=== PATIENT | female | born 1980 | race Caucasian/White ===

== ENCOUNTER → 2016-12-20 | Outpatient (CLI) | payer OTHER | END | disposition home or self-care (01) | LOC: CFH 14:53 | PROVIDERS: ATTEND Family Medicine | DX: M25.572 Pain in left ankle and joints of left foot (principal) ==

== ENCOUNTER 2018-09-10 11:34 | Emergency (ER) | payer OTHER ==
[~2018-09-10] VITALS: Ht 154.9 cm; Wt 57.7 kg
[2018-09-10 11:58] VITALS: BP 167/91
[2018-09-10 12:30] LABS: BASOPHILS # (AUTO) 0.04 x10^3/uL (0-0.1); BASOPHILS % (AUTO) 1 % (0-1); EOSINOPHILS # (AUTO) 0.05 x10^3/uL (0-0.4); EOSINOPHILS % (AUTO) 1 % (1-7); LYMPHOCYTES # (AUTO) 1.13 x10^3/uL (1-3.4); LYMPHOCYTES % (AUTO) 21 % (22-44); MD NO; MEAN CORPUSCULAR HEMOGLOBIN 33.4 pg (27.0-34.8); MEAN CORPUSCULAR HGB CONC 33.8 g/dL (32.4-35.8); MEAN CORPUSCULAR VOLUME 98.8 fL (80-100); MEAN PLATELET VOLUME 8.3 fL (7.4-10.4); MONOCYTES # (AUTO) 0.53 x10^3/uL (0.2-0.8); MONOCYTES % (AUTO) 10 % (2-9); NEUTROPHILS # (AUTO) 3.63 x10^3/uL (1.8-6.8); NEUTROPHILS % (AUTO) 68 % (42-75); PLATELET COUNT 262 x10^3/uL (130-400); RED BLOOD COUNT 4.22 x10^6/uL (3.82-5.3); RED CELL DISTRIBUTION WIDTH 15.3 % (9.6-15.2)
[2018-09-10 12:41] LABS: ALBUMIN 4.1 g/dL (3.4-5.0); ANION GAP 8 mmol/L (5-15); CALCIUM 8.8 mg/dL (8.5-10.1); CHLORIDE 107 mmol/L (98-107); CREATININE 0.58 mg/dL (0.55-1.02)
== END 2018-09-10 13:56 | disposition home or self-care (01) ==
LOC: ED 13:50
DX: L03.115 Cellulitis of right lower limb (principal)
CPT/HCPCS: 36415; 80048; 82040; 85025; 99284

== ENCOUNTER → 2019-07-15 | Outpatient (CLI) | payer OTHER ==
[~2019-07-15] MED LIST: GADOTERATE 2.5 MMOL/5 ML VIAL ONE; LIDOCAINE-MPF 1%, 5ML ONE; OMNIPAQUE 300 MG/ML, 10ML VIAL ONE; ROPivacaine/PF 0.2%, 10 ML ONE
== END | disposition home or self-care (01) ==
LOC: RAD 13:57
PROVIDERS: ATTEND Specialist
CPT/HCPCS: 73523 ×2; 73525; 73722; A9575; J2795 ×2; Q9967 ×2

== ENCOUNTER 2020-04-06 20:39 | Emergency (ER) | payer OTHER ==
[2020-04-06] MEDS ORDERED: SODIUM CHLORIDE FLUSH 10ML SYR IVF ONE (21:00)
[2020-04-06] MEDS ORDERED: THIAMINE 100 MG in SODIUM CHLORIDE 0.9% 50 ML IVPB ONE (21:00)
[2020-04-06] MEDS ORDERED: SODIUM CHLORIDE 0.9% 1,000ML IVBOLUS ONE ×2 (21:00→23:30)
[2020-04-06 21:21] LABS: MEAN CORPUSCULAR HEMOGLOBIN 29.5 pg (27.0-34.8); MEAN CORPUSCULAR HGB CONC 32.1 g/dL (32.4-35.8); MEAN CORPUSCULAR VOLUME 92.2 fL (80-100); MEAN PLATELET VOLUME 8.4 fL (7.4-10.4); PLATELET COUNT 143 x10^3/uL (130-400); RED BLOOD COUNT 5.87 x10^6/uL (3.82-5.3)
[2020-04-06 21:24] LABS: ALANINE AMINOTRANSFERASE 215 U/L (12-78); ALBUMIN 3.3 g/dL (3.4-5.0); ANION GAP 14 mmol/L (5-15); CALCIUM 7.4 mg/dL (8.5-10.1); CHLORIDE 103 mmol/L (98-107); CREATININE 0.78 mg/dL (0.55-1.02)
[2020-04-06 21:29] LABS: ALKALINE PHOSPHATASE 75 U/L (45-117); BILIRUBIN,TOTAL 0.5 mg/dL (0.2-1.0); TOTAL PROTEIN 6.8 g/dL (6.4-8.2)
--- NOTE | 2020-04-06 21:41 | NUR ---
PT A&OX4 NOW.
[2020-04-06 21:43] LABS: MD YES
[2020-04-06 21:45] LABS: ANISOCYTOSIS 1+; BAND#(MANUAL) 0.08 x10^3/uL; BANDS%(MANUAL) 1 % (0-7); LYMPH#(MANUAL) 0.68 x10^3/uL (1-3.4); LYMPHS% (MANUAL) 9 % (22-44); MONOS#(MANUAL) 0.76 x10^3/uL (0.3-2.7); MONOS% (MANUAL) 10 % (2-9); SEG#(MANUAL) 6.08 x10^3/uL (1.8-6.8); SEGS% (MANUAL) 80 % (42-75)
[2020-04-06 21:46] LABS: <PLATELET ESTIMATE> ADEQUATE; <PLT MORPHOLOGY> NORMAL PLT MORPH
--- NOTE | 2020-04-06 22:37 | NUR ---
LATE ENTRY SUMMARY NOTE: PT IMMEDIATELY PLACED ON CARDIAC, BP AND O2 MONITORS. IN BED WITH BEDRAILS UP. SHE INITIALLY WOULD ONLY ANSWER APPROX HALF THE QUESTIONS ASKED OF HER. NO PT COMMUNICATING IN FULL SENTENCES AND ANSWERING ALL QUESTIONS. PT STATES "I WAS ON VACATION, I DRANK THE 5 BOTTLES OVER THE PAST 2 DAYS." PT ABLE TO SIT UP AND DRINK WATER NOW. SHE'S HAD A VISITOR AT THE BEDSIDE UNTIL APPROX 2215. SHE HAS HER CALL LIGHT IN REACH. PT EDUCATED THAT SHE IS RECEIVING FLUIDS WHEN SHE STATES "I FEEL LIKE I JUST NEED A SALINE INJECTION." WILL ASSESS PT'S ABILITY TO AMBULATE AND PUT HER CHART UP FOR RECHECK.
--- NOTE | 2020-04-06 23:54 | NUR ---
LATE ENTRY FOR 2319: PT DRESSED SELF IN SOCKS, HR UP TO 143, ERP MADE AWARE, SECOND LITER HUNG.
--- NOTE | 2020-04-07 00:31 | NUR ---
PT UP TO BESDIDE COMMODE WITH ASSISTANCE. HR UP TO 140. ERP MADE AWARE.
[2020-04-07 00:51] VITALS: BP 129/94
--- NOTE | 2020-04-07 00:56 | NUR ---
PT AMBULATORY TO SINK FOR WATER, STEADY GAIT. PT DRESSING SELF FOR D/C.
== END 2020-04-07 01:11 | disposition home or self-care (01) ==
LOC: ED 04-07 00:11
DX: F10.229 Alcohol dependence with intoxication, unspecified (principal); R00.0 Tachycardia, unspecified; I49.3 Ventricular premature depolarization; Y90.0 Blood alcohol level of less than 20 mg/100 ml
CPT/HCPCS: 36415; 80053; 80307; 85025; 93005; 96361; 96365; 99284; J3411; J7030

== ENCOUNTER 2020-04-10 15:41 | Inpatient (IN) | payer OTHER ==
[~2020-04-10] VITALS: Ht 154.9 cm; Wt 62.8 kg
[2020-04-10] MEDS ORDERED: LORazepam 2 MG/ML, 1ML ONE ×2 (16:24→18:23)
[2020-04-10] MEDS ORDERED: SODIUM CHLORIDE 0.9% 1,000ML IVBOLUS ONE (16:30)
[2020-04-10] MEDS ORDERED: SODIUM CHLORIDE FLUSH 10ML SYR IVF ONE (16:30)
[2020-04-10] MEDS ORDERED: LORazepam 2 MG/ML, 1ML IVPush ONE ×2 (16:30→18:30)
[2020-04-10 17:11] LABS: ALANINE AMINOTRANSFERASE 151 U/L (12-78); ANION GAP 19 mmol/L (5-15); CALCIUM 7.9 mg/dL (8.5-10.1); CHLORIDE 94 mmol/L (98-107); CREATININE 0.35 mg/dL (0.55-1.02)
[2020-04-10 17:15] LABS: ALKALINE PHOSPHATASE 63 U/L (45-117); TOTAL PROTEIN 6.3 g/dL (6.4-8.2)
[2020-04-10 17:49] LABS: MEAN CORPUSCULAR HEMOGLOBIN 29.9 pg (27.0-34.8); MEAN CORPUSCULAR HGB CONC 32.6 g/dL (32.4-35.8); MEAN CORPUSCULAR VOLUME 91.8 fL (80-100); MEAN PLATELET VOLUME 7.2 fL (7.4-10.4); PLATELET COUNT 107 x10^3/uL (130-400); RED CELL DISTRIBUTION WIDTH 18.9 % (9.6-15.2)
[2020-04-10] MEDS ORDERED: POTASSIUM CHLORIDE 20 MEQ, MAGNESIUM SULFATE 1 GM, FOLIC ACID 1 MG, THIAMINE 200 MG, MV... IV ONE (18:00)
[2020-04-10 18:09] LABS: BASOPHILS % (AUTO) 0 % (0-1); EOSINOPHILS % (AUTO) 0 % (1-7); LYMPHOCYTES # (AUTO) 0.34 x10^3/uL (1-3.4); LYMPHOCYTES % (AUTO) 7 % (22-44); MD SCAN; MONOCYTES # (AUTO) 0.64 x10^3/uL (0.2-0.8); MONOCYTES % (AUTO) 12 % (2-9); NEUTROPHILS # (AUTO) 4.17 x10^3/uL (1.8-6.8); NEUTROPHILS % (AUTO) 81 % (42-75)
[2020-04-10] MEDS ORDERED: CHLORDIAZEPOXIDE 25 MG CAPSULE ONE (18:23)
[2020-04-10] MEDS ORDERED: CHLORDIAZEPOXIDE 25 MG CAPSULE PO ONE (18:30)
[2020-04-10] MEDS ORDERED: POTASSIUM CHLORIDE 20 MEQ, MAGNESIUM SULFATE 2 GM, THIAMINE 200 MG, MVI ADULT 10 ML, FO... IV SCH (18:34)
[2020-04-10] MEDS ORDERED: LABETALOL 5MG/ML, 20ML IV PRN (19:00)
[2020-04-10] MEDS ORDERED: LORazepam 2 MG/ML, 1ML IV PRN ×2 (19:00)
[2020-04-10] MEDS ORDERED: NICOTINE 14MG/24 HR PATCH.TD24 TD ONE (19:00)
[2020-04-10] MEDS ORDERED: ONDANSETRON 2MG/ML, 2ML IVPush PRN (19:00)
[2020-04-10] MEDS ORDERED: DOCUSATE 100 MG CAPSULE PO PRN (19:00)
[2020-04-10 21:18] VITALS: BP 137/79
[2020-04-10] MEDS ORDERED: [UNRECOGNIZED DRUG - CODE] PO (21:26)
[2020-04-10] MEDS ORDERED: CELE50CA PO (21:26)
[2020-04-10] MEDS: LORazepam 2 MG/ML, 1ML IV PRN ×2 (22:30→23:53)
[2020-04-11 00:44] VITALS: BP 142/87
[2020-04-11] MEDS ORDERED: EPIN0.3A3 IJ (02:19)
[2020-04-11] MEDS ORDERED: IBUP-1223 PO (02:19)
[2020-04-11 05:11] LABS: ALBUMIN 2.9 g/dL (3.4-5.0); ANION GAP 10 mmol/L (5-15); CALCIUM 8.5 mg/dL (8.5-10.1); CHLORIDE 97 mmol/L (98-107)
[2020-04-11 05:15] LABS: ALANINE AMINOTRANSFERASE 128 U/L (12-78); ALKALINE PHOSPHATASE 71 U/L (45-117); BILIRUBIN,TOTAL 1.3 mg/dL (0.2-1.0); CREATININE 0.57 mg/dL (0.55-1.02); TOTAL PROTEIN 5.8 g/dL (6.4-8.2)
[2020-04-11 05:16] LABS: MEAN CORPUSCULAR HEMOGLOBIN 30.3 pg (27.0-34.8); MEAN CORPUSCULAR VOLUME 91.8 fL (80-100); MEAN PLATELET VOLUME 7.9 fL (7.4-10.4); PLATELET COUNT 105 x10^3/uL (130-400); RED BLOOD COUNT 3.57 x10^6/uL (3.82-5.3); RED CELL DISTRIBUTION WIDTH 18.5 % (9.6-15.2)
[2020-04-11 06:03] LABS: BASOPHILS % (AUTO) 0 % (0-1); EOSINOPHILS # (AUTO) 0.02 x10^3/uL (0-0.4); EOSINOPHILS % (AUTO) 0 % (1-7); LYMPHOCYTES # (AUTO) 1.07 x10^3/uL (1-3.4); LYMPHOCYTES % (AUTO) 23 % (22-44); MD SCAN; MONOCYTES # (AUTO) 0.44 x10^3/uL (0.2-0.8); MONOCYTES % (AUTO) 9 % (2-9); NEUTROPHILS # (AUTO) 3.23 x10^3/uL (1.8-6.8); NEUTROPHILS % (AUTO) 68 % (42-75)
[2020-04-11 06:30] VITALS: BP 169/103
[2020-04-11] MEDS: LORazepam 2 MG/ML, 1ML IV PRN (06:42)
[2020-04-11] MEDS ORDERED: MAGNESIUM SULFATE PMX 2GM/50ML 50 ML IV ONE (08:30)
[2020-04-11] MEDS: CHLORDIAZEPOXIDE 25 MG CAPSULE PO SCH ×3 (08:41→21:59)
[2020-04-11 12:13] VITALS: BP 172/122
[2020-04-11 12:43] VITALS: BP 161/100
[2020-04-11] MEDS ORDERED: LABETALOL 5MG/ML, 20ML IV PRN (13:00)
[2020-04-11 16:06] VITALS: BP 165/104
[2020-04-11] MEDS: POTASSIUM CHLORIDE 20 MEQ, MAGNESIUM SULFATE 2 GM, THIAMINE 200 MG, MVI ADULT 10 ML, FO... IV SCH (18:02)
[2020-04-11 18:34] VITALS: BP 147/93
[2020-04-12 02:19] VITALS: BP 156/95
[2020-04-12 06:15] LABS: CHLORIDE 101 mmol/L (98-107)
[2020-04-12 06:33] LABS: ALANINE AMINOTRANSFERASE 102 U/L (12-78); ALBUMIN 2.8 g/dL (3.4-5.0); ALKALINE PHOSPHATASE 61 U/L (45-117); ANION GAP 7 mmol/L (5-15); BILIRUBIN,TOTAL 1.3 mg/dL (0.2-1.0); CALCIUM 8.2 mg/dL (8.5-10.1); CREATININE 0.41 mg/dL (0.55-1.02); TOTAL PROTEIN 6.1 g/dL (6.4-8.2)
[2020-04-12 06:39] VITALS: BP 158/108
[2020-04-12 06:44] LABS: MD YES; MEAN CORPUSCULAR HGB CONC 32.3 g/dL (32.4-35.8); MEAN CORPUSCULAR VOLUME 92.8 fL (80-100); MEAN PLATELET VOLUME 8.3 fL (7.4-10.4); PLATELET COUNT 111 x10^3/uL (130-400); RED BLOOD COUNT 3.94 x10^6/uL (3.82-5.3); RED CELL DISTRIBUTION WIDTH 18.6 % (9.6-15.2)
[2020-04-12 06:45] LABS: BAND#(MANUAL) 0.13 x10^3/uL; BANDS%(MANUAL) 3 % (0-7); EOS#(MANUAL) 0.04 x10^3/uL (0.0-0.4); EOS% (MANUAL) 1 % (1-7); LYMPH#(MANUAL) 0.67 x10^3/uL (1-3.4); LYMPHS% (MANUAL) 16 % (22-44); MONOS#(MANUAL) 0.38 x10^3/uL (0.3-2.7); MONOS% (MANUAL) 9 % (2-9); SEG#(MANUAL) 2.98 x10^3/uL (1.8-6.8); SEGS% (MANUAL) 71 % (42-75)
[2020-04-12 06:46] LABS: <PLATELET ESTIMATE> DECREASED; <PLT MORPHOLOGY> NORMAL PLT MORPH; ANISOCYTOSIS 1+; HYPOCHROMIA 1+
[2020-04-12] MEDS: POTASSIUM CHLORIDE 20 MEQ TAB.ER.PRT PO SCH ×2 (08:46→17:22)
[2020-04-12 12:08] VITALS: BP 164/105
[2020-04-12] MEDS: LORazepam 2 MG/ML, 1ML IV PRN ×2 (14:40→21:00)
[2020-04-12] MEDS: POTASSIUM CHLORIDE 20 MEQ, MAGNESIUM SULFATE 2 GM, THIAMINE 200 MG, MVI ADULT 10 ML, FO... IV SCH (17:22)
[2020-04-12 18:42] VITALS: BP 142/95
[2020-04-13 00:36] VITALS: BP 126/84
[2020-04-13] MEDS: LORazepam 2 MG/ML, 1ML IV PRN ×4 (02:42→20:17)
[2020-04-13] MEDS: POTASSIUM CHLORIDE 20 MEQ, MAGNESIUM SULFATE 2 GM, THIAMINE 200 MG, MVI ADULT 10 ML, FO... IV SCH (02:42)
[2020-04-13 05:31] LABS: ALANINE AMINOTRANSFERASE 77 U/L (12-78); ALBUMIN 2.7 g/dL (3.4-5.0); ANION GAP 7 mmol/L (5-15); CALCIUM 8.8 mg/dL (8.5-10.1); CHLORIDE 106 mmol/L (98-107); CREATININE 0.41 mg/dL (0.55-1.02)
[2020-04-13 05:33] LABS: ALKALINE PHOSPHATASE 69 U/L (45-117); BILIRUBIN,TOTAL 0.8 mg/dL (0.2-1.0); TOTAL PROTEIN 6.3 g/dL (6.4-8.2)
[2020-04-13 06:03] LABS: MD YES; MEAN CORPUSCULAR HEMOGLOBIN 30.4 pg (27.0-34.8); MEAN CORPUSCULAR HGB CONC 32.3 g/dL (32.4-35.8); MEAN PLATELET VOLUME 9.2 fL (7.4-10.4); PLATELET COUNT 144 x10^3/uL (130-400); RED BLOOD COUNT 3.88 x10^6/uL (3.82-5.3); RED CELL DISTRIBUTION WIDTH 18.7 % (9.6-15.2)
[2020-04-13 06:05] LABS: <PLATELET ESTIMATE> ADEQUATE; <PLT MORPHOLOGY> NORMAL PLT MORPH; ANISOCYTOSIS 1+; BAND#(MANUAL) 0.05 x10^3/uL; BANDS%(MANUAL) 1 % (0-7); EOS#(MANUAL) 0.14 x10^3/uL (0.0-0.4); EOS% (MANUAL) 3 % (1-7); LYMPH#(MANUAL) 0.71 x10^3/uL (1-3.4); LYMPHS% (MANUAL) 15 % (22-44); MONOS#(MANUAL) 0.42 x10^3/uL (0.3-2.7); MONOS% (MANUAL) 9 % (2-9); SEG#(MANUAL) 3.38 x10^3/uL (1.8-6.8); SEGS% (MANUAL) 72 % (42-75)
[2020-04-13 07:31] VITALS: BP 131/87
[2020-04-13 13:53] VITALS: BP 137/90
[2020-04-13 18:45] VITALS: BP 142/89
[2020-04-14 01:49] VITALS: BP 129/68
[2020-04-14] MEDS: POTASSIUM CHLORIDE 20 MEQ, MAGNESIUM SULFATE 2 GM, THIAMINE 200 MG, MVI ADULT 10 ML, FO... IV SCH ×2 (02:06→02:07)
[2020-04-14 07:08] VITALS: BP 144/88
== END 2020-04-14 10:31 | disposition home or self-care (01) | DRG 641 ==
LOC: ED 17:33 → EDIP 18:49 → 4WST 21:06 → DCLOUNGE 04-14 10:24
PROVIDERS: ADMIT Family Medicine; ATTEND Family Medicine
DX: E87.6 Hypokalemia (principal); F10.231 Alcohol dependence with withdrawal delirium; E83.42 Hypomagnesemia; E87.1 Hypo-osmolality and hyponatremia; E87.2 Acidosis; D69.6 Thrombocytopenia, unspecified; F10.229 Alcohol dependence with intoxication, unspecified; G51.0 Bell's palsy; F17.210 Nicotine dependence, cigarettes, uncomplicated; G89.29 Other chronic pain; Z88.8 Allergy status to other drugs, medicaments and biological substances
CPT/HCPCS: 36415; J7042; 80053; 80074; 83735; 84703; 85025; 93005; 96361; 96374; 99285; G0378; J3411; J3475; J3480; J2060; J7030

== ENCOUNTER 2021-03-06 14:23 | Emergency (ER) | payer OTHER ==
[~2021-03-06] VITALS: Ht 157.5 cm; Wt 55.0 kg
[~2021-03-06 14:23] MED LIST changes: +CELE50CA PO; +EPIN0.3A3 IJ; -GADOTERATE 2.5 MMOL/5 ML VIAL ONE; +IBUP-1223 PO; -LIDOCAINE-MPF 1%, 5ML ONE; -OMNIPAQUE 300 MG/ML, 10ML VIAL ONE; -ROPivacaine/PF 0.2%, 10 ML ONE; +[UNRECOGNIZED DRUG - CODE] PO
--- NOTE | 2021-03-06 14:57 | NUR ---
PT PRESENTS TO ED WTH C/O HIGH BLOOD PRESSURE AND HEADACHE STARTING TODAY. NEURP INTACT, PT A&O, RESPS EVEN AND UNLABORED, NADN. PT PRESENTS ANXIOUS. CALL LIGHT IN REACH.
--- NOTE | 2021-03-06 15:08 | NUR ---
lary Sethi at bedside for eval
--- NOTE | 2021-03-06 15:20 | NUR ---
PT MEDICATED PER ORDER, TOLERATED WELL. LAB AT BEDSIDE
[2021-03-06 15:34] LABS: BASOPHILS % (AUTO) 2 % (0-1); EOSINOPHILS % (AUTO) 1 % (1-7); LYMPHOCYTES % (AUTO) 25 % (22-44); MEAN CORPUSCULAR HEMOGLOBIN 30.8 pg (27.0-34.8); MEAN CORPUSCULAR HGB CONC 33.6 g/dL (32.4-35.8); MEAN PLATELET VOLUME 8.3 fL (7.4-10.4); MONOCYTES % (AUTO) 10 % (2-9); NEUTROPHILS % (AUTO) 63 % (42-75); PLATELET COUNT 217 x10^3/uL (130-400); RED BLOOD COUNT 4.45 x10^6/uL (3.82-5.3); RED CELL DISTRIBUTION WIDTH 19.1 % (9.6-15.2)
[2021-03-06 15:43] LABS: ALANINE AMINOTRANSFERASE 61 U/L (12-78); ALBUMIN 4.3 g/dL (3.4-5.0); ANION GAP 10 mmol/L (5-15); CALCIUM 8.5 mg/dL (8.5-10.1); CHLORIDE 102 mmol/L (98-107); CREATININE 0.45 mg/dL (0.55-1.02)
[2021-03-06 15:53] LABS: ALKALINE PHOSPHATASE 61 U/L (45-117); BILIRUBIN,TOTAL 0.5 mg/dL (0.2-1.0); TOTAL PROTEIN 8.5 g/dL (6.4-8.2)
[2021-03-06 16:20] VITALS: BP 156/104
--- NOTE | 2021-03-06 16:21 | NUR ---
pt resting on guruzair, a&o, resps even and unlabored, vss, nadn. states she is feeling better and no longer has a headache.
--- NOTE | 2021-03-06 17:19 | NUR ---
pt educated on dc instructions, verbalized understanding, ambulatory to dc desk with steayd gait.
== END 2021-03-06 17:42 | disposition home or self-care (01) ==
LOC: ED 14:45
DX: I10 Essential (primary) hypertension (principal)
CPT/HCPCS: 36415; 80053; 84443; 85025; 93005; 99284

== ENCOUNTER 2021-03-26 15:54 | Emergency (ER) | payer OTHER ==
[~2021-03-26] VITALS: Ht 154.9 cm; Wt 55.0 kg
--- NOTE | 2021-03-26 16:30 | NUR ---
LATE ENTRY. PT BIB EMS FOR ETOH DETOX. PT HAS DETOXED ONCE BEFORE AND HAD A SZ DUE TO ETOH WITHDRAWL. PT ADMITS TO DRINKING "4-5 SHOTS OF VODKA" LAST NIGHT. PT RESTING IN [facility]. CONNECTED TO ALL MONITORS.
[2021-03-26] MEDS ORDERED: LORazepam 1MG TABLET PO ONE (17:30)
[2021-03-26] MEDS ORDERED: THIAMINE 100MG TABLET PO ONE (17:30)
[2021-03-26] MEDS ORDERED: FOLIC ACID 1 MG TABLET PO ONE (17:30)
[2021-03-26 17:38] LABS: BASOPHILS % (AUTO) 1 % (0-1); EOSINOPHILS % (AUTO) 0 % (1-7); LYMPHOCYTES % (AUTO) 14 % (22-44); MEAN CORPUSCULAR HEMOGLOBIN 31.4 pg (27.0-34.8); MEAN CORPUSCULAR HGB CONC 33.2 g/dL (32.4-35.8); MEAN PLATELET VOLUME 8.3 fL (7.4-10.4); MONOCYTES % (AUTO) 7 % (2-9); NEUTROPHILS % (AUTO) 78 % (42-75); PLATELET COUNT 181 x10^3/uL (130-400); RED BLOOD COUNT 3.81 x10^6/uL (3.82-5.3); RED CELL DISTRIBUTION WIDTH 18.9 % (9.6-15.2)
[2021-03-26] MEDS ORDERED: THIAMINE 100MG TABLET ONE (17:38)
[2021-03-26] MEDS ORDERED: LORazepam 1MG TABLET ONE (17:38)
[2021-03-26 17:43] VITALS: BP 138/90
[2021-03-26 17:49] LABS: ALBUMIN 3.9 g/dL (3.4-5.0); ANION GAP 6 mmol/L (5-15); CALCIUM 8.2 mg/dL (8.5-10.1); CHLORIDE 106 mmol/L (98-107); CREATININE 0.64 mg/dL (0.55-1.02)
--- NOTE | 2021-03-26 18:01 | NUR ---
PT MEDICATED PER MAR
== END 2021-03-26 18:58 ==
LOC: ED 18:55
DX: F10.121 Alcohol abuse with intoxication delirium (principal); Y90.9 Presence of alcohol in blood, level not specified
CPT/HCPCS: 36415; 80048; 80320; 82040; 85025; 99283; G0480